=== PATIENT | male | born 1970 ===

== ENCOUNTER 2017-05-25 20:53 | Emergency (ER) | payer MEDICAID ==
[2017-05-25 20:54] VITALS: BMI 31.5
[2017-05-25 21:11] VITALS: RESP 16
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
[2017-05-25] MEDS ORDERED: Silver Sulfadiazine 1% Cream (20 gm) TOP STA (21:30)
[2017-05-25] MEDS ORDERED: Silver Sulfadiazine 1% Cream (20 gm) ONE (22:23)
[2017-05-25 22:37] VITALS: BP 128/86; PULSE 96; TEMP 97.6
[2017-05-25 23:29] VITALS: O2SAT 99
== END 2017-05-25 23:45 | disposition home or self-care (01) ==
LOC: C.ER 20:53
DX: T22.211A Burn of second degree of right forearm, initial encounter (principal); X11.8XXA Contact with other hot tap-water, initial encounter; Y93.89 Activity, other specified; Y92.89 Other specified places as the place of occurrence of the external cause; Y99.0 Civilian activity done for income or pay